=== PATIENT | male | born 1980 | race African-American/Black ===

== ENCOUNTER 2017-05-08 20:39 | Emergency (ER) | payer OTHER ==
[~2017-05-08] VITALS: Ht 177.8 cm; Wt 74.8 kg
[~2017-05-08 20:39] MED LIST: IBUPROFEN 800800 MG PO; NORCO 5-325 TA1 EACH PO; ONDANSETRON HCL4 M2 PO; PREDNISONE 20 M20 MG PO; VENTOLIN HFA 1818 GM INH
[2017-05-08] MEDS ORDERED: POLYMYXIN B/TMP10 ML OPHTHALMIC (21:37)
== END 2017-05-08 22:00 | disposition home or self-care (01) ==
LOC: ER 20:39
DX: S05.01XA Injury of conjunctiva and corneal abrasion without foreign body, right eye, initial encounter (principal); F17.210 Nicotine dependence, cigarettes, uncomplicated; X58.XXXA Exposure to other specified factors, initial encounter; Y93.89 Activity, other specified; Y92.89 Other specified places as the place of occurrence of the external cause; Y99.8 Other external cause status

== ENCOUNTER 2019-09-22 22:56 | Emergency (ER) | payer OTHER ==
[~2019-09-22] VITALS: Ht 180.3 cm; Wt 77.1 kg
[~2019-09-22 22:56] MED LIST changes: +POLYMYXIN B/TMP10 ML OPHTHALMIC
[2019-09-22] MEDS ORDERED: KEFLEX500 M2 PO (23:06)
[2019-09-23 05:36] VITALS: BP 127/76
== END 2019-09-23 05:37 | disposition home or self-care (01) ==
LOC: ER 22:56
DX: M25.572 Pain in left ankle and joints of left foot (principal); F17.210 Nicotine dependence, cigarettes, uncomplicated; W18.39XA Other fall on same level, initial encounter; Y93.89 Activity, other specified; Y92.89 Other specified places as the place of occurrence of the external cause; Y99.8 Other external cause status

== ENCOUNTER 2020-07-17 03:56 | Emergency (ER) | payer OTHER ==
[~2020-07-17] VITALS: Ht 180.3 cm; Wt 74.8 kg
[~2020-07-17 03:56] MED LIST changes: +KEFLEX500 M2 PO
[2020-07-17] MEDS ORDERED: NOHOMEMEDICATIONS (04:08)
[2020-07-17 04:38] LABS: ABSOLUTE NEUTROPHILS 3.7 thou/uL (1.4-8.2); BASOPHILS 0.5 % (0.0-2.0); EOSINOPHILS 1.4 % (0.0-3.0); HEMATOCRIT 43.3 % (42.0-52.0); LYMPHOCYTES 29.1 % (24.0-44.0); MCH 25.3 pg (26.0-34.0); MCHC 32.2 g/dL (28.0-37.0); MCV 78.5 fL (80.0-100.0); MONOCYTES 6.4 % (1.0-8.0); PLATELET COUNT 194 thou/uL (150-400); POLYS 62.6 % (36.0-66.0); RBC 5.52 mil/uL (4.50-6.00); RDW 16.2 % (10.5-14.5); WBC 5.9 thou/uL (4.0-11.0)
[2020-07-17 04:41] LABS: CALCIUM 9.2 mg/dL (8.5-10.1); CREATININE 1.3 mg/dL (0.7-1.3); POTASSIUM 3.8 mmol/L (3.5-5.1)
[2020-07-17 04:46] LABS: ALBUMIN 4.2 g/dL (3.4-5.0); DIRECT BILIRUBIN 0.2 mg/dL (<0.1-0.2); TOTAL BILIRUBIN 1.8 mg/dL (0.2-1.0); TOTAL PROTEIN 8.3 g/dL (6.4-8.2)
[2020-07-17 08:24] VITALS: BP 104/72
--- NOTE | 2020-07-19 07:21 | EKG ---
[address] [address] ELECTROCARDIOGRAM REPORT Name: ADRIANA WHITTAKER AMADOU Room #: [id number] Admission: 07/17/20 Attend Phys: Discharge: 07/17/20 Date of : 84 Report #: [id number] [facility] ED Test Date: 2020-07-17 Test Time: 04:33:38 Pat Name: ADRIANA WHITTAKER Department: Room: Gender: [employer]: more : 1980 Requested By: Anuj Black Order Number: [id number] MD: Joe Ochoa Measurements Intervals Leon Rate: 64 P: 82 RI: 170 QRS: 79 QRSD: 102 T: 36 QT: 405 QTc: 418 Interpretive Statements Sinus rhythm Probable left atrial enlargement Left ventricular hypertrophy Compared to ECG 07/14/2015 19:09:18 Left ventricular hypertrophy now present Electronically Signed On 07-19-2020 7:21:23 CDT by Joe Ochoa [email or web address] <ELECTRONICALLY SIGNED> By: Joe Ochoa MD, [facility] 07/19/20 0721 0433 0433 Joe Ochoa MD, FACC /EPI
== END 2020-07-17 08:25 | disposition home or self-care (01) ==
LOC: ER 03:56
PROVIDERS: Emergency Medicine
DX: S80.12XA Contusion of left lower leg, initial encounter (principal); S16.1XXA Strain of muscle, fascia and tendon at neck level, initial encounter; S63.501A Unspecified sprain of right wrist, initial encounter; F10.129 Alcohol abuse with intoxication, unspecified; F17.210 Nicotine dependence, cigarettes, uncomplicated; V49.59XA Passenger injured in collision with other motor vehicles in traffic accident, initial encounter; Y93.89 Activity, other specified; Y92.89 Other specified places as the place of occurrence of the external cause; Y99.8 Other external cause status; Y90.7 Blood alcohol level of 200-239 mg/100 ml